=== PATIENT | male | born 1955 | race Caucasian/White ===

== ENCOUNTER 2017-04-29 09:04 | Inpatient (IN) | payer BC ==
[2017-04-29] MEDS ORDERED: ASPIRIN EC 325 MG TAB PO ONE ×2 (09:07→09:32)
[2017-04-29] MEDS ORDERED: FAMOTIDINE 20 MG TAB PO ONE (09:07)
[2017-04-29] MEDS ORDERED: DIAZEPAM 5 MG TAB PO ONE (09:07)
[2017-04-29] MEDS ORDERED: NS 1,000 ML IV ONE (09:07)
[2017-04-29] MEDS ORDERED: diphenhydrAMINE 25 MG CAP PO ONE ×2 (09:07→09:32)
--- NOTE | 2017-04-29 09:30 | CPEKG ---
Heart Rate: 67 RR Interval: 896 P-R Interval: 156 QRSD Interval: 86 QT Interval: 396 QTC Interval: 418 P Prescott: 46 QRS Prescott: 39 T Wave Prescott: 50 EKG Severity - NORMAL ECG - EKG Impression: SINUS RHYTHM Electronically Signed By: Gagan Corea 29-Apr-2017 12:42:15
[2017-04-29] MEDS ORDERED: FAMOTIDINE 20 MG TAB ONE (09:32)
[2017-04-29] MEDS ORDERED: DIAZEPAM 5 MG TAB ONE (09:32)
[2017-04-29 09:40] LABS: % IMMATURE GRANULYOCYTES 1.3 % (0.0-1.1); ABSOLUTE IMMATURE GRANULOCYTES 0.06 10^3/uL (0.00-0.10); ADD DIFF? NO; ADD MORPH? NO; ADD SCAN? NO; ATYPICAL LYMPHOCYTE FLAG 10 (0-99); FRAGMENT RBC FLAG 0 (0-99); HEMATOCRIT 41.7 % (40.0-51.0); HEMOGLOBIN 14.6 g/dL (13.7-17.5); LEFT SHIFT FLG 10 (0-99); LIPEMIA HEMOLYSIS FLAG 90 (0-99); MEAN CELL VOLUME 94.1 fL (81.5-99.8); MEAN PLATELET VOLUME 9.5 fL (8.7-11.7); PLATELET CLUMPS FLAG 0 (0-99); PLATELET COUNT 144 10^3/uL (150-400); RED BLOOD CELL COUNT 4.43 10^6/uL (4.40-6.38); RED CELL DISTRIBUTION WIDTH 13.2 % (11.5-15.2)
--- NOTE | 2017-04-29 09:53 | PDHPUP ---
History & Physical Update H&P update statement: This history and physical update is based on an assessment of the patient which was completed after admission or registration (within 24 hours), but prior to the surgery/procedure. H&P update: H&P reviewed & patient examined, no change in patient's condition since H&P completed
--- NOTE | 2017-04-29 09:54 | PDPROPOC ---
Sedation Plan of Care Sedation Plan of Care: vital signs stable, mental status noted, patient educated of risks, benefits, alternatives, patient can tolerate sedation ASA Classification: ASA 3 Planned drugs: fentanyl, midazolam Mallampati Score: Class 3 Mallampati Reference Image: Patient passed 3-3-2 rule?: Yes
[2017-04-29 09:56] LABS: ANION GAP 13 mEq/L (8-16); CALCIUM 9.5 mg/dL (8.5-10.4); CARBON DIOXIDE 27 mEq/l (22-31); CHLORIDE 102 mEq/L (97-110); CHOLESTEROL 151 mg/dL (140-220); CHOLESTEROL/HDL RATIO 2.75 RATIO (1.00-4.97); CREATININE 0.8 mg/dL (0.7-1.3); GLOMERULAR FILTRATION RATE > 60; GLUCOSE 84 mg/dL (70-100); HIGH DENSITY LIPOPROTEIN 55 mg/dL (40-65); LDL/HDL RATIO 1.45 RATIO (1.00-3.64); LOW DENSITY LIPOPROTEIN 80 mg/dL (80-100); NON-HIGH DENSITY LIPOPROTEIN 96 mg/dL (90-129); SODIUM 142 mEq/L (134-144); TRIGLYCERIDE 83 mg/dL (40-150); VERY LOW DENSITY LIPOPROTEINS 16 mg/dL (8-25)
[2017-04-29 09:57] LABS: INR 0.97 (0.83-1.16); PROTIME(PATIENT) 12.8 SEC (12.0-15.0)
[2017-04-29] MEDS ORDERED: fentaNYL 100 MCG/2 ML INJ ONE ×2 (10:50→11:20)
[2017-04-29] MEDS ORDERED: MIDAZOLAM 2 MG/2 ML VIAL ONE ×2 (10:50→11:20)
[2017-04-29] MEDS ORDERED: HEPARIN 10,000 UNIT/10 ML MDV ONE ×2 (10:50→11:59)
[2017-04-29] MEDS ORDERED: VERAPAMIL 5 MG/2 ML VIAL ONE (10:50)
[2017-04-29] MEDS ORDERED: LIDOCAINE 1% 300 MG/30 ML SDV ONE (10:50)
[2017-04-29] MEDS ORDERED: IOPAMIDOL (ISOVUE-370) 150 ML BTL IV ONE ×2 (10:51→12:08)
[2017-04-29] MEDS ORDERED: ONDANSETRON 4 MG/2 ML VIAL ONE (11:09)
--- NOTE | 2017-04-29 11:16 | PDDXCAT ---
Diagnostic Cath Note - . Date: 04/29/17 Helicopter Pilot: Ginette Indication: CCC Class III and IV angina on medical treatment - Procedure Access: left wrist Procedure: left heart catheterization - Materials Left Heart Cath size: 5F Left Heart Cath materials: standard multipack (JL4, JR4, pigtail) - Findings-Left Heart Catheterization LM: 8mm in size and bifurcates into the LAD and circumflex system. There is approx 20% ostial stenosis at the takeoff from the left coronary cusp. LAD: It is 4mm in size. There is a 60 to 65% stenosis of the ostial LAD. There is a 95% stenosis of the main LAD diagonal with AC III flow. This is in essence a bifid LAD system. The LAD proper is subtotally occluded with 99% stenosis and AC II flow. LCX: It is 4mm in size with a large obtuse marginal branch and AC III flow. A small segment of the distal circumflex reveals a 99% stenosis but feed a relatively small territory. RCA: 4mm in size with AC III flow throughout. This is a codominant system. Diffusely luminal irregularity distally, consistent with underlying scelrosis. No flow limiting obstruction is identified. EDP: 15 mmHg LVEF: Is greater that 65%. No segmental wall motion abnormalities. There is significant mitral regurgitation on pressurized injection and the left atrium appears large. Wall motion: There are no segmental wall motion abnormalities. The papillary muscles are prominent and there may be asymetric thickening of the proximal septum. Complications: NONE. Estimated blood loss: <50ml Closure method: TR Band Assessment: the patient has severe sitka vessel coronary disease with an ostial 62% stenosis of the LAD and severe and flow limiting obstruction of a bifid LAD and diagonal system, which would require complex intervention and bifucation stenting to repair. A small circumflex obstuse marginal branch also has a flow limiting obstruction but is unlikely to be a target for bypass. There is evidence of significant mitral regurgitation and possible asymetric hypertrophy of the interventricular septum as well. Plan: The patient will be taken to the [facility] where a transthoracic echocardiogram will be obtained to assess the severity of mitral regurgitation and thickness of the left ventricular septum. The patient will be offered complex intervention with bifurcation stenting vs bypass surgery vs a hybrid procedure with SORIA to the LAD diagonal with a planned percutaneous intervention of the LAD and distal circumflex. Intervention: IVUS of the proximal LAD and left main was accomplished with a 6 serbian 3.5 EBU guiding catheter and a 0.014 intuition coronary wire and a Whiphand IVUS catheter. The ostial LAD was found to have a 63% plaque area stenosis. Minimal eccentric plaque of the left main was identified.
--- NOTE | 2017-04-29 15:40 | ECHO ---
[email or web address] [address] [address] Main: [phone] Fax: Transthoracic Echocardiogram Name: BILL FARAH MR#: [id number] Study Date: 04/29/2017 Study Time: 01:12 PM Date of : 1955 Age: 61 year(s) Height: 167.6 cm (66 in.) Weight: 70.76 kg (156 lb.) BSA: 1.8 m2 Gender: Male Examination: Echo Indication: Image Quality: Adequate Contrast: Requested by: Britton Peng BP: 129 mmHg/85 mmHg Heart Rate: Rhythm: Normal sinus rhythm Indication: Procedure Staff Loader Machine: Sushila Gudino Reading Physician: Too Foley Requesting Provider: Britton Peng Conclusions: Normal size left ventricle. Borderline concentric LV hypertrophy. Normal global systolic LV function. EF is 62 %. No regional wall motion abnormality. There is mild thickening of the mitral valve leaflets. There is Mild posterior annulus calcification. Minimal aortic cusp calcification is noted. There is no aortic valve regurgitation. The tricuspid valve is normal in appearance and function. Mild tricuspid regurgitation is present. Measurements: Chambers Valvular Assessment AV/MV Valvular Assessment TV/PV Normal Normal Normal Name Value Range Name Value Range Name Value Range Ao Carmen (MM): 2.9 cm (2.2 cm-3.7 AV Vmax: 0.79 m/s (1 m/s-1.7 TR Vmax: 2.01 mm/s ( - ) cm) m/s) TR PGmax: 16 mmHg ( - ) IVSd (2D): 1.2 cm (0.6 cm-1.1 AV maxP mmHg ( - ) syst. PAP: 21 mmHg ( - ) cm) LVOT Vmax: 0.81 m/s (0.7 m/s-1.1 PV Vmax: 0.84 m/s (0.6 m/s-0.9 LVDd (2D): 3.9 cm (4.2 cm-5.9 m/s) m/s) cm) MV E Vmax: 0.66 m/s ( - ) PV PGmax: 3 mmHg ( - ) LVDs (2D): 2.7 cm (2.1 cm-4 MV A Vmax: 0.54 m/s ( - ) cm) MV E/A: 1.22 ( - ) LVPWd (2D): 0.9 cm (0.6 cm-1 cm) LVEF (BP): 62 % (>=55 %) RVDd(2D): 3.9 cm (1.9 cm-3.8 cmmm) Patient: BILL FARAH Study Date: 04/29/2017 Page 1 of 2 01:12 PM Continued Measurements: Chambers Valvular Assessment AV/MV Valvular Assessment TV/PV Name Value Name Value Name Value LADs Lon.6 cm MV DecTime: 222 m/s CVP (est.): 5 mmHg LA Area: 17.1 cm2 MV E' Septal: 0.06 m/s LA Volume: 49 ml MV E/E' Septal: 10.80 LA Volume Index: 27.2 ml/m2 MV E/E' Lateral: 9.10 TAPSE: 1.9 cm Additional Vessels Name Value Ao Ascendin.4 cm Findings: Left Ventricle: Normal size left ventricle. Borderline concentric LV hypertrophy. Mild proximal septal thickening. Normal global systolic LV function. EF is 62 %. No regional wall motion abnormality. Normal diastolic LV function. Right Ventricle: Normal size right ventricle. Left Atrium: The left atrium is normal in size. Right Atrium: The right atrium is normal in size. Mitral Valve: The mitral valve is normal in appearance and function. There is mild thickening of the mitral valve leaflets. Mild mitral valve regurgitation is present. There is Mild posterior annulus calcification. Aortic Valve: The aortic valve is normal in appearance and function. The aortic valve is tri-leaflet. Mild focal thickening on the right coronary leaflet. Minimal aortic cusp calcification is noted. There is no aortic valve regurgitation. Tricuspid Valve: The tricuspid valve is normal in appearance and function. Mild tricuspid regurgitation is present. The pulmonary artery pressure is normal. Pulmonic Valve: The pulmonic valve is normal in appearance and function. Mild pulmonic valve regurgitation is noted. Aorta: The aorta is normal. Pericardium: No pericardial effusion. (No Signature Object) Patient: BILL FARAH Study Date: 04/29/2017 Page 2 of 2 01:12 PM [id number]
[2017-04-29] MEDS ORDERED: NITROGLYCERIN 0.4 MG BTL SL PRN (16:52)
[2017-04-29] MEDS ORDERED: ATROPINE SULFATE 1 MG/10 ML SYR IVP PRN (16:52)
[2017-04-29] MEDS ORDERED: ONDANSETRON DISINTEGRATING 4 MG TAB PO PRN (16:52)
[2017-04-29] MEDS ORDERED: ACETAMINOPHEN 325 MG TAB PO PRN (16:52)
[2017-04-29] MEDS ORDERED: METHOTREXATE 2.5 MG TAB PO SCH (17:15)
[2017-04-29] MEDS: ASPIRIN 81 MG CHEWABLE TAB PO SCH (23:10)
[2017-04-30] MEDS: ZOLPIDEM TARTRATE 5 MG TAB PO PRN (01:02)
[2017-04-30 05:49] LABS: TROPONIN I 0.025 ng/mL (0.000-0.034)
[2017-04-30] MEDS: predniSONE 5 MG TAB PO SCH (09:32)
[2017-04-30] MEDS: ROSUVASTATIN CALCIUM 10 MG TAB PO SCH (09:33)
[2017-04-30] MEDS ORDERED: LISINOPRIL/HCTZ 10/12.5 MG 1 EA TAB PO SCH (14:00)
--- NOTE | 2017-04-30 15:48 | ASMTCASEMG ---
Living Arrangements What is your living Answers: With Spouse arrangement? Who do you live with? Type Of Residence What kind of residence do Answers: House you live in? Discharge Plan Comments Coordination Status Comments Notes: Chart reviewed, pt is a 61 y/o man admitted for post cath and pre open heart. Pt is scheduled to have surgical intervention tomorrow. Needs are TBD at this time. No therapies ordered at this time. However, anticipates that pt will d/c independent when medically stable w/ supportive . CM available for changes. Date Signed: 04/30/2017 03:47 PM Electronically Signed By:DANILO Jaimes
--- NOTE | 2017-04-30 16:46 | GCON ---
[f rep st] CONSULTATION DATE OF CONSULTATION: 04/29/2017 IMPRESSION: Unstable angina pectoris with 2-vessel disease, and normal left ventricular function. RECOMMENDATIONS: This patient should stay in house and undergo coronary bypass grafting on an urgent basis, given his unstable symptomatology pre-catheterization. The risks and complications were revie wed at length including mortality/ of 1%, bleeding of 1%, infection of 1%, and stroke of 1%. Alt ernatives including complex stenting in a young man were reviewed and offered but felt to be a substa ndard alternative. The patient preferred to proceed with surgical intervention, understood and accept ed those risks. His was present during discussion as was Dr. Peng. CHIEF COMPLAINT: Chest pain. HISTORY OF CHIEF COMPLAINT: This patient developed severe substernal chest pain while cutting the gr ass, which took some time to resolve. Upon further questioning, he had spent most of the night with o ngoing chest pain in bed, thinking it was heartburn. He was seen and referred to Dr. Peng, who took him directly to the union laborer and he was found to have high-grade LAD, diagonal bifurcation disease w ith diffuse disease in the distal vessels. He had some posterior lateral circumflex disease as well. MEDICAL HISTORY: As stated. Surgeries include appendectomy, back surgery, and lymph node excision. S jogren syndrome. MEDICATIONS: On admission were lisinopril, Crestor, methotrexate, and prednisone for Sjogren syndrom e. ALLERGIES: Denied. SOCIAL HISTORY: He drinks coffee. He does not smoke, and he does not drink in excess. FAMILY HISTORY: Positive for coronary artery disease with multiple prior interventions on family mem bers. REVIEW OF SYSTEMS: At the present time, he is asymptomatic without chest pain. All 10 systems were i nterrogated and were unremarkable except for chief complaint. PHYSICAL EXAMINATION: VITAL SIGNS: Blood pressure 120/80, pulse 76, respirations 14, O2 saturation w as 93% on room air. HEENT: Normocephalic, PERRLA, EOMI. NECK: Without bruit, adenopathy or thyromegal y. HEART: Rate is regular without murmur, S3 or S4. LUNGS: Clear. ABDOMEN: Soft, nontender. Bowel sandra nds are active. RECTAL, GENITALIA: Exam deferred. NEUROLOGIC: Grossly intact. Moves all extremities t o command. EXTREMITIES: Pedal pulses are 2+ and symmetric. There is no edema. No varicosities. Please see cath report for details. Troponin was negative. BNP was 42. /[id number]/MODL
[2017-04-30 17:56] LABS: HEMOGLOBIN A1C 4.8 % (4.0-6.0)
[2017-04-30] MEDS: ASPIRIN 81 MG CHEWABLE TAB PO SCH (20:58)
[2017-04-30] MEDS: SENNOSIDES/DOCUSATE SODIUM TAB PO SCH (20:58)
[2017-04-30] MEDS ORDERED: CHLORHEXIDINE GLUC HIBICLENS 118 ML BTL TP SCH (21:00)
[2017-05-01 05:29] LABS: ANION GAP 12 mEq/L (8-16); CALCIUM 10.2 mg/dL (8.5-10.4); CARBON DIOXIDE 26 mEq/l (22-31); CHLORIDE 99 mEq/L (97-110); CREATININE 0.8 mg/dL (0.7-1.3); GLOMERULAR FILTRATION RATE > 60; GLUCOSE 82 mg/dL (70-100); POTASSIUM 3.7 mEq/L (3.5-5.2); SODIUM 137 mEq/L (134-144)
[2017-05-01] MEDS ORDERED: MANNITOL 20% 50 GM/250 ML BAG IV ONE (06:00)
[2017-05-01] MEDS ORDERED: niCARdipine/NACL 200 ML IV ONE (06:00)
[2017-05-01] MEDS ORDERED: NOREPINEPHRINE BITARTRATE 16 MG in NS 250 ML IV ONE (06:00)
[2017-05-01] MEDS ORDERED: VERAPAMIL 5 MG, NITROGLYCERIN 2.5 MG, HEPARIN 500 UNIT, SODIUM BICARBONATE 0.2 MEQ in L... MISC ONE (06:00)
[2017-05-01] MEDS ORDERED: AMINOCAPROIC ACID 5 GM/20 ML VIAL IV ONE (06:00)
[2017-05-01] MEDS ORDERED: PHENYLEPHRINE HCL 50 MG in NS 250 ML IV ONE (06:00)
[2017-05-01] MEDS ORDERED: SODIUM BICARBONATE 20 MEQ, LIDOCAINE 1% 10 ML in NORMOSOL-R 1,000 ML MISC ONE (06:00)
[2017-05-01] MEDS ORDERED: CITRATE DEXTROSE SOLN 500 ML BAG MISC ONE (06:00)
[2017-05-01] MEDS ORDERED: NS 1,000 ML IV ONE (06:00)
[2017-05-01] MEDS ORDERED: ceFAZolin 2 GM/DEXTROSE 100 ML IV ONE (06:00)
[2017-05-01] MEDS ORDERED: INSULIN REGULAR HUMAN 100 UNIT in NS 100 ML IV ONE (06:00)
[2017-05-01] MEDS: MUPIROCIN 2% 22 GM OINT NS SCH ×3 (06:22→22:09)
[2017-05-01] MEDS ORDERED: POTASSIUM Cl (KCl) 20 MEQ/50 ML BAG IV ONE (07:12)
[2017-05-01] MEDS ORDERED: PROTAMINE SULFATE 50 MG/5 ML VIAL IVP ONE (07:12)
[2017-05-01] MEDS ORDERED: CALCIUM CHLORIDE 1 GM/10 ML INJ ONE ×2 (07:12→07:20)
[2017-05-01] MEDS ORDERED: MILRINONE/DEXTROSE/100 ML BAG IV ONE (07:12)
[2017-05-01] MEDS ORDERED: DOPamine/DEXTROSE/250 ML BAG IV ONE (07:13)
[2017-05-01] MEDS ORDERED: AMINOCAPROIC ACID 5 GM/20 ML VIAL ONE ×2 (07:13→07:20)
[2017-05-01] MEDS ORDERED: NA BICARBONATE 50 MEQ/50 ML VIAL ONE (07:13)
[2017-05-01] MEDS ORDERED: ADENOSINE 6 MG/2 ML VIAL ONE (07:14)
[2017-05-01] MEDS ORDERED: AMIODARONE HCL 150 MG/3 ML VIAL ONE ×2 (07:14→07:21)
[2017-05-01] MEDS ORDERED: niCARdipine/NACL/200 ML BAG IV ONE (07:14)
[2017-05-01] MEDS ORDERED: HEPARIN 10,000 UNIT/10 ML MDV ONE ×2 (07:16→07:22)
[2017-05-01] MEDS ORDERED: PAPAVERINE HCL 60 MG/2 ML SDV ONE ×2 (07:19→08:05)
[2017-05-01] MEDS ORDERED: VERAPAMIL 5 MG/2 ML VIAL ONE ×2 (07:19→08:05)
[2017-05-01] MEDS ORDERED: ceFAZolin 1 GM VIAL ONE (07:19)
[2017-05-01] MEDS ORDERED: ALBUMIN 5% 250 ML BOTTLE IV ONE ×2 (07:20→11:04)
[2017-05-01] MEDS ORDERED: LIDOCAINE 2% 100 MG/5 ML SYR ONE (07:21)
[2017-05-01] MEDS ORDERED: CITRATE DEXTROSE SOLN 500 ML BAG ONE (07:21)
[2017-05-01] MEDS ORDERED: methylPREDNISolone SOD SUCC 1 GM/8 ML VIAL ONE (07:22)
[2017-05-01] MEDS ORDERED: MAGNESIUM SULFATE 1 GM/2 ML VIAL ONE (07:22)
--- NOTE | 2017-05-01 07:41 | PDANEPAE ---
ANE History of Present Illness here for cabg, has unstable angina ANE Past Medical History - Cardiovascular History Hx Hypertension: No Hx Chest Pain: Yes Hx Coronary Artery / Peripheral Vascular Disease: Yes Hx CHF / Valvular Disease: No Hx Palpitations: No Cardiovascular History Comment: 2 v disease unstable angina - Pulmonary History Hx COPD: No Hx Asthma/Reactive Airway Disease: No Hx Recent Upper Respiratory Infection: No Hx Oxygen in Use at Home: No Hx Sleep Apnea: No Sleep Apnea Screening Result - Last Documented: Positive - Endocrine History Hx Diabetes: No Hypothyroid: No Hyperthyroid: No Obesity: no - Renal History Hx Renal Disorders: No - Liver History Hx Hepatic Disorders: No - Other Health History Other Health History: srojens - Chronic Pain History Chronic Pain: No (if keeps up with methotrexate) ANE Review of Systems Review of systems is: negative Review of Systems: - Exercise capacity Exercise capacity: <4 METS ANE Patient History - Allergies Allergies/Adverse Reactions: No Allergies [NKDA] Allergy (Verified 04/28/17 13:53) - Home Medications Home medications: home medication list seen and reviewed Home Medications: Aspirin [Aspirin 81mg (*)] 81 mg PO HS 04/29/17 [Last Taken 04/28/17 162mg] Cholecalciferol Vit D3 [Vitamin D3 2000 units tab (OTC)] 2,000 units PO DAILY [Last Taken 04/29/17] Folic Acid [Folic Acid 1 MG (*)] 1 mg PO DAILY 04/29/17 [Last Taken 04/29/17] Herbals/Supplements -Info Only 1 ea PO DAILY 04/29/17 [Last Taken Unknown] Lisinopril/Hctz 10/12.5 mg [Zestoretic/Prinzide 10/12.5MG (*)] 1 ea PO DAILY@14 04/29/17 [Last Taken 04/28/17] Methotrexate Sodium [Rheumatrex 2.5 mg (RX)] 10 mg PO TH 04/29/17 [Last Taken ] Rosuvastatin Calcium [Crestor 5mg] 2.5 mg PO Q2D 04/29/17 [Last Taken 04/28/17] predniSONE 2.5 mg PO DAILY 04/29/17 [Last Taken 04/29/17] - NPO status NPO Status: no food or drink >8 hours NPO Since - Liquids (Date): 05/01/17 NPO Since - Liquids (Time): 00:01 NPO Since - Solids (Date): 04/30/17 NPO Since - Solids (Time): 18:00 - Anes Hx Anes Hx: no prior problems - Smoking Hx Smoking Status: Former smoker ANE Labs/Vital Signs - Labs Result Diagrams: 04/29/17 09:30 05/01/17 04:05 - Vital Signs Blood Pressure: 139/87 Heart Rate: 83 Respiratory Rate: 14 O2 Sat (%): 92 Height: 167.64 cm Weight: 69.7 kg ANE Physical Exam - Airway Neck exam: FROM Mallampati Score: Class 1 Mouth exam: normal dental/mouth exam - Pulmonary Pulmonary: no respiratory distress - Cardiovascular Cardiovascular: regular rate and rhythym - ASA Status ASA Status: IV ANE Anesthesia Plan Anesthesia Plan: general endotracheal anesthesia Lines/Monitors: arterial line, central line
[2017-05-01] MEDS ORDERED: HYDROmorphONE/DILAUDID 2 MG/ML INJ ONE ×3 (07:52→10:17)
[2017-05-01] MEDS ORDERED: PROPOFOL/EMULSION 500 MG/50 ML BOTTLE IV ONE (07:54)
[2017-05-01] MEDS ORDERED: PHENYLEPHRINE HCL 100 MCG/ML SYR ONE (07:54)
[2017-05-01] MEDS ORDERED: LIDOCAINE 2% 5 ML SDV ONE (07:54)
[2017-05-01] MEDS ORDERED: DEXAMETHASONE 4 MG/ML VIAL ONE ×2 (07:57)
[2017-05-01] MEDS ORDERED: HYDROCORTISONE 100 MG/2 ML VIAL IVP SCH (08:00)
[2017-05-01] MEDS ORDERED: NITROGLYCERIN 50 MG/10 ML SDV IV ONE (08:00)
[2017-05-01] MEDS ORDERED: KETAMINE 100 MG/10 ML SYR ONE (08:02)
[2017-05-01] MEDS ORDERED: MIDAZOLAM 2 MG/2 ML VIAL ONE (08:07)
[2017-05-01] MEDS ORDERED: MINERAL OIL 10 ML VIAL ONE (10:24)
[2017-05-01] MEDS ORDERED: SUGAMMADEX SODIUM 200 MG/2 ML VIAL IVP ONE (10:47)
--- NOTE | 2017-05-01 11:00 | POSTOPPROG ---
Post Op Note Date of Operation: 05/01/17 Surgeon: Emile Rachel Director Of Gift Planning: Pradeep Anesthesiologist: Rahul Anesthesia: GET(General Endotracheal) Pre-op Diagnosis: ASHD, [place] Procedure: CAB 2 Jon-Lad, SVG-Dg, Atriclip Inf/Abcess present in the surg proc area at time of surgery?: No EBL: Minimal
[2017-05-01] MEDS ORDERED: METOCLOPRAMIDE 10 MG/2 ML VIAL IVP PRN (11:04)
[2017-05-01] MEDS ORDERED: CEPACOL LOZENGE PO PRN (11:04)
[2017-05-01] MEDS ORDERED: LACTULOSE 20 GM/30 ML UDCUP PO PRN (11:04)
[2017-05-01] MEDS ORDERED: BISACODYL 10 MG SUPP PR PRN (11:04)
[2017-05-01] MEDS ORDERED: MEPERIDINE 25 MG/ML SYR IVP PRN (11:04)
[2017-05-01] MEDS ORDERED: MAGNESIUM SULF 2 GM/WATER 50 ML BAG IV ONE (11:04)
[2017-05-01] MEDS ORDERED: POTASSIUM Cl (KCl) 50 ML IV PRN (11:04)
[2017-05-01] MEDS ORDERED: PANTOPRAZOLE SODIUM 40 MG in NS 100 ML IV ONE (11:04)
[2017-05-01] MEDS ORDERED: SODIUM CL NASAL 45 ML BTL EACHNARE PRN (11:04)
[2017-05-01] MEDS ORDERED: ACETAMINOPHEN 325 MG TAB PO PRN (11:04)
[2017-05-01] MEDS ORDERED: MAGNESIUM SULF 2 GM/WATER 50 ML IV ONE (11:04)
[2017-05-01] MEDS ORDERED: D50W 25 GM/50 ML SYR IVP PRN (11:04)
[2017-05-01] MEDS ORDERED: NS 1,000 ML IV SCH (11:15)
[2017-05-01] MEDS ORDERED: KETOROLAC 15 MG/1 ML SDV ONE (11:24)
--- NOTE | 2017-05-01 11:25 | CPEKG ---
Heart Rate: 101 RR Interval: 594 P-R Interval: 136 QRSD Interval: 88 QT Interval: 364 QTC Interval: 472 P Leo: 73 QRS Leo: 67 T Wave Leo: 57 EKG Severity - OTHERWISE NORMAL ECG - EKG Impression: SINUS TACHYCARDIA Electronically Signed By: Gagan Corea 01-May-2017 12:20:18
[2017-05-01] MEDS ORDERED: INSULIN REGULAR HUMAN 100 UNIT in NS 100 ML IV SCH (11:30)
--- NOTE | 2017-05-01 11:31 | POSTANESTH ---
Post Anesthetic Evaluation Cardiovascular Status: Normal, Stable Respiratory Status: Normal, Stable Level of Consciousness/Mental Status: Can Participate in Eval, Mildly Sleepy, Arousable Pain Control: Adequate, Prn Tx Ordered Nausea/Vomiting Control: Adequate, Prn Tx Ordered Complications Possibly Related to Anesthesia: None Noted
[2017-05-01 11:38] LABS: CALCULATED OXYGEN SATURATION 95 % (92-95); O2 CONCENTRATIION 100 % (0-100)
--- NOTE | 2017-05-01 11:39 | GOP ---
[f rep st] OPERATIVE REPORT DATE OF OPERATION: 05/01/2017 SURGEON: Emile Rachel DO HUMAN RELATIONS TEACHER: Aranza Fernández, ALBINO ANESTHESIOLOGIST: Jd Kay MD. PREOPERATIVE DIAGNOSIS: Unstable angina pectoris with 2-vessel coronary artery disease. POSTOPERATIVE DIAGNOSIS: Unstable angina pectoris with 2-vessel coronary artery disease. PROCEDURE PERFORMED: 1. Coronary bypass grafting x2 with left internal mammary artery to the LAD and saphenous vein graft to the diagonal. 2. AtriClip ligation of left atrial appendage. FINDINGS: Patient presented with crescendo/unstable angina pectoris, underwent diagnostic left heart catheterization, and was referred for surgical intervention. Consent was obtained. DESCRIPTION OF PROCEDURE: He was brought to the operating room intubated. Monitoring lines were [place] swetha. He was prepped and draped in sterile classical manner. Timeout was confirmed. A sternotomy wa s performed. The mammary was harvested. It was a 2.2 to 2.4 mm vessel with good brisk flow. He was heparinized abdomen cannulated in standard fashion. Bypass was begun, and cardioplegic arrest was o btained with antegrade cardioplegia, topical hypothermia, and systemic cooling. Initially, a diffuse ly diseased diagonal vessel measuring 1.8 mm was grafted in the mid segment where the only soft anter ior surface was identified, with vein end-to-side, which was harvested from the left ankle. Proximal anastomosis was completed with a cross-clamp on. Rewarming was begun while the mammary was grafted to the mid LAD in the area plaque-free area. It was a 2.2 to 2.4 mm vessel, actually larger than the diagonal which appeared larger on cath. It was tacked to the epicardium. The cross-clamp was remov ed with suction on the ascending aortic vent. A 35 mm AtriClip was placed at the base of the left at rial appendage without difficulty. The patient was weaned from bypass. The heparin was reversed wit h protamine. The cannula was removed and oversewn. Two ventricular pacing wires with 1 left pleural 1 mediastinal drain were placed at thymic fat. pericardium was closed. Chest was closed in standar d fashion. Patient was returned to ICU in stable condition. /[id number]/MODL
[2017-05-01] MEDS ORDERED: KETOROLAC 15 MG/1 ML SDV IVP ONE (11:45)
[2017-05-01] MEDS: ALBUMIN 5% 250 ML IV PRN ×5 (12:04→19:29)
--- NOTE | 2017-05-01 12:55 | GCON ---
[f rep st] CONSULTATION [employer] TUNING ENGINEER CONSULTATION. REASON FOR ADMISSION: Postop coronary bypass graft. HISTORY OF PRESENT ILLNESS: The patient is a 61-year-old white male with a past medical history of b ack pain with back surgeries and Sjogren syndrome. He is examined postoperatively after receiving an urgent 2-vessel coronary bypass graft for unstable symptomatology. Again, he was given a 2-vessel c oronary bypass graft. He is currently extubated in the intensive care unit, but he is somewhat sedat ed. All history is gleaned from the medical record. PAST MEDICAL HISTORY: Again, significant for coronary artery disease and Sjogren syndrome. PAST SURGICAL HISTORY: He has had an appendectomy, back surgery, and a lymph node excision. ALLERGIES: None to medications. SOCIAL HISTORY: No history of tobacco use. Infrequent alcohol use. MEDICATIONS: At home include lisinopril, Crestor, methotrexate, and prednisone. PHYSICAL EXAMINATION: VITAL SIGNS: Blood pressure 139/87, pulse 83, respirations 14, temperature 37 .1, oxygen saturation 92% on supplemental oxygen. GENERAL: He is a well-developed, well-nourished [age]-year-old white male, who is resting comfortably and in no acute distress. HEENT: Eyes are PERRLA. EOMI. Throat exam is deferred secondary to supplemental oxygen. NECK: Supple. No cervical adeno gregg. HEART: Regular rate and rhythm, without murmurs, rubs, or gallops. LUNGS: Clear to auscult ation. No wheeze or rhonchi. CHEST: The sternal wound is clean. ABDOMEN: Soft, nontender. Bowel sounds are present in all 4 quadrants. EXTREMITIES: No clubbing, cyanosis, or edema. LABORATORIES: White count 4.8, hemoglobin 14, hematocrit 41, platelet count 144. Sodium 137, potass ium 4.4, chloride 102, CO2 26, BUN 15, creatinine 0.8, glucose 169. Arterial blood gas: pH 7.28, pC O2 49, pO2 78, bicarb 23, oxygen saturation 95%. IMPRESSION: 1. Status post 2-vessel coronary artery bypass graft. 2. Coronary artery disease. 3. Sjogren syndrome. 4. Hypertension. 5. Hypercholesterolemia. RECOMMENDATIONS: 1. Adequate pain control. 2. DVT and PE prophylaxis, holding anticoagulation for now. 3. Aggressive blood sugar control. 4. Stress ulcer prophylaxis. 5. Early ambulation. 6. PT and OT. /[id number]/MODL
[2017-05-01] MEDS: ceFAZolin 2 GM/DEXTROSE 100 ML IV SCH ×2 (13:55→21:58)
[2017-05-01] MEDS: POTASSIUM Cl (KCl) 20 MEQ in NS 50 ML IV PRN (13:56)
[2017-05-01 16:13] LABS: CALCULATED OXYGEN SATURATION 97 % (92-95)
[2017-05-01] MEDS: ONDANSETRON 4 MG/2 ML VIAL IVP PRN ×2 (16:15→19:29)
[2017-05-01] MEDS: predniSONE 5 MG TAB PO SCH (17:34)
[2017-05-01] MEDS: SENNOSIDES/DOCUSATE SODIUM TAB PO SCH (17:36)
[2017-05-01] MEDS: fentaNYL 100 MCG/2 ML INJ IVP PRN ×2 (20:05→21:58)
[2017-05-01] MEDS ORDERED: HEPARIN 5,000 UNIT/0.5 ML SYR SC SCH (21:00)
[2017-05-01] MEDS: ASPIRIN 81 MG CHEWABLE TAB PO SCH (22:11)
[2017-05-01] MEDS: HYDROCODONE/APAP 5/325 TAB PO PRN (22:59)
[2017-05-01] MEDS: ZOLPIDEM TARTRATE 5 MG TAB PO PRN (22:59)
[2017-05-01 23:08] LABS: HEMATOCRIT 29.3 % (40.0-51.0); HEMOGLOBIN 10.5 g/dL (13.7-17.5); MEAN CELL HEMOGLOBIN 32.9 pg (27.9-34.1); MEAN CELL HEMOGLOBIN CONCENTR. 35.8 g/dL (32.4-36.7); MEAN CELL VOLUME 91.8 fL (81.5-99.8); RED BLOOD CELL COUNT 3.19 10^6/uL (4.40-6.38); RED CELL DISTRIBUTION WIDTH 13.1 % (11.5-15.2)
[2017-05-01] MEDS: HEPARIN 5,000 UNIT/0.5 ML SYR SC SCH (23:23)
[2017-05-02] MEDS: fentaNYL 100 MCG/2 ML INJ IVP PRN ×3 (01:49→08:22)
[2017-05-02] MEDS: OXYCODONE/APAP 5/325 TAB PO PRN ×2 (01:49→21:27)
[2017-05-02] MEDS ORDERED: niCARdipine/NACL 200 ML IV SCH (02:30)
[2017-05-02] MEDS: ceFAZolin 2 GM/DEXTROSE 100 ML IV SCH ×3 (05:04→21:28)
[2017-05-02 05:15] LABS: % IMMATURE GRANULYOCYTES 0.5 % (0.0-1.1); ABSOLUTE IMMATURE GRANULOCYTES 0.05 10^3/uL (0.00-0.10); ADD DIFF? NO; ADD MORPH? NO; ADD SCAN? NO; ATYPICAL LYMPHOCYTE FLAG 0 (0-99); FRAGMENT RBC FLAG 0 (0-99); HEMATOCRIT 29.9 % (40.0-51.0); HEMOGLOBIN 10.5 g/dL (13.7-17.5); LEFT SHIFT FLG 10 (0-99); LIPEMIA HEMOLYSIS FLAG 90 (0-99); MEAN CELL HEMOGLOBIN 32.9 pg (27.9-34.1); MEAN CELL HEMOGLOBIN CONCENTR. 35.1 g/dL (32.4-36.7); MEAN CELL VOLUME 93.7 fL (81.5-99.8); MEAN PLATELET VOLUME 9.2 fL (8.7-11.7); PLATELET CLUMPS FLAG 0 (0-99); PLATELET COUNT 77 10^3/uL (150-400); RED BLOOD CELL COUNT 3.19 10^6/uL (4.40-6.38); RED CELL DISTRIBUTION WIDTH 13.3 % (11.5-15.2)
[2017-05-02] MEDS: HEPARIN 5,000 UNIT/0.5 ML SYR SC SCH (05:18)
[2017-05-02 05:47] LABS: ANION GAP 10 mEq/L (8-16); CALCIUM 8.5 mg/dL (8.5-10.4); CARBON DIOXIDE 23 mEq/l (22-31); CHLORIDE 107 mEq/L (97-110); CREATININE 0.6 mg/dL (0.7-1.3); GLOMERULAR FILTRATION RATE > 60; GLUCOSE 106 mg/dL (70-100); POTASSIUM 3.9 mEq/L (3.5-5.2); SODIUM 140 mEq/L (134-144)
[2017-05-02] MEDS: HYDROCODONE/APAP 5/325 TAB PO PRN (07:49)
[2017-05-02] MEDS ORDERED: PROTOCOL POTASSIUM 1 DOSE MISC PRN (08:05)
[2017-05-02] MEDS ORDERED: POTASSIUM Cl (KCl) 50 ML IV ONE (08:09)
[2017-05-02] MEDS: ONDANSETRON 4 MG/2 ML VIAL IVP PRN ×2 (08:25→18:08)
--- NOTE | 2017-05-02 08:29 | SOAPPROG ---
SOAP Progress Note Assessment/Plan: Assessment: POD#1 Urgent CABG x 2 (SORIA-LAD, SV-D1), open harvest GSV left low leg, prophylactic AtriClip ligation left atrial appendage Sx severe CAD with preserved LV systolic fx - s/p CABG2. Extubated in the OR. No pressor support, jamilah/tachydysrhythmias, backup pacing, or significant volume overload. Secondary prevention with ASA, BB as tolerated, and statin when eating well. Adjunctive Plavix x 1 mo for friable vessels. HTN - Home control with ACEI/HCTZ. Postop management with low dose nicardipine. Transition to metoprolol in progress. Postoperative pain and nausea - Expected given hx low pain threshold and profound nausea to narcs. Postop management with multimodal analgesia and anti- emetics. Chest tube removal as soon as feasible. Acute expected blood loss anemia with thrombocytopenia - Stable. No blood products transfused. Care with VTE prophylaxis while platelets depressed. Sjogren syndrome - IV steroids intraop transitioned back to maintenance prednisone dose. Plan: Routine POD#1 orders re lines, drains, orals and mobility. Start Plavix 75 mg daily x 1 month. Stop nicardipine. Start metoprolol tartrate 12.5 mg BID w conservative hold parameters. Toradol 30mg IV prn breakthrough pain. Trial phenergan. Scopolamine patch if ineffective. Tx to PCU. 05/02/17 08:22 Subjective: Hanging in there. Low grade pain/nausea not limiting sleep, IS or mobility. Sipping water. No appetite. Objective: Vital Signs Temp Pulse Resp BP Pulse Ox 37.9 C 107 H 19 124/65 H 93 05/02/17 04:00 05/02/17 07:00 05/02/17 07:00 05/02/17 07:46 05/02/17 07:00 Laboratory Results 05/02/17 05:05 05/02/17 05:05 05/01/17 05/02/17 05/03/17 05:59 05:59 05:59 Intake Total 300 3439.7 Output Total 2275 Balance 300 1164.7 PT 12.8 SEC (12.0-15.0) 04/29/17 09:30 INR 0.97 (0.83-1.16) 04/29/17 09:30 Nicardipine @ 2 mg for MAP > 80. Persistent tachycardia, likely reactive to pain. Min suppl O2 req. CXR -> no PTX, no pulm vasc congestion, small left pl effusion with compressive atelectasis. Pl tube appears in good position. No sig CTOP. Positive fluid balance without depressed UOP. Labs as expected. Physical Exam - Physical Exam General Appearance: alert, no apparent distress Respiratory: lungs clear (excellent insp effort), other (blakes x 2 y-d to pleurovac, serosang drainage, +tidal, no air leak; left pleural tube stripped of fibrinous stranding/clot) Cardiac/Chest: regular rate, rhythm, tachycardia, other (Sternotomy and LLE venotomy CDI. Vwires intact.) Abdomen: non-tender, soft Skin: warm/dry Extremities: swelling (trace) ICD10 Worksheet Patient Problems: Problems Problem Status Onset Acute blood loss anemia Acute CAD in [place] artery Acute S/P CABG x 2 Acute ~05/01/17 Unstable angina Acute
[2017-05-02] MEDS: POTASSIUM Cl (KCl) 20 MEQ in NS 50 ML IV PRN (08:40)
--- NOTE | 2017-05-02 09:18 | PDINTPN ---
Ux Design Lead Progress Note Assessment/Plan: Assessment/plan: * Status post 2 vessel coronary bypass graft * Coronary disease * Sjogren syndrome * Pain-tolerable * Probable obstructive sleep apnea -will need outpatient sleep study upon discharge * PT/OT * Begin ambulation Subjective: Sitting up in chair. Pain is tolerable. Breathing easily. Objective: Vital Signs Temp Pulse Resp BP Pulse Ox 37.9 C 99 20 133/65 H 95 05/02/17 04:00 05/02/17 09:00 05/02/17 09:00 05/02/17 09:00 05/02/17 09:00 Laboratory Results 05/02/17 05:05 05/02/17 05:05 05/01/17 05/02/17 05/03/17 05:59 05:59 05:59 Intake Total 300 3439.7 Output Total 2275 150 Balance 300 1164.7 -150 PT 12.8 SEC (12.0-15.0) 04/29/17 09:30 INR 0.97 (0.83-1.16) 04/29/17 09:30 Chest [id number]-[id number]-[id number] by myself. Central line in good position. There is mild cardiomegaly. And mild fluid overload Physical Exam - Physical Exam General Appearance: WD/WN, alert, no apparent distress EENT: PERRL/EOMI, normal ENT inspection, pharynx normal, TMs normal Neck: non-tender, full range of motion, supple, normal inspection Respiratory: crackles (Few basilar), No respiratory distress, No wheezing Cardiac/Chest: normal peripheral pulses, regular rate, rhythm, systolic murmur Peripheral Pulses: 2+: carotid (R), carotid (L), femoral (R), femoral (L), dorsalis-pedis (R), dorsalis-pedis (L) Abdomen: normal bowel sounds, non-tender, soft Male Genitalia: deferred Rectal: deferred Skin: normal color, warm/dry Extremities: normal range of motion, non-tender, normal inspection, normal capillary refill Neuro/Psych: no motor/sensory deficits, alert, normal mood/affect, oriented x 3 ICD10 Worksheet Patient Problems: Problems Problem Status Onset Acute blood loss anemia Acute CAD in [place] artery Acute S/P CABG x 2 Acute ~05/01/17 Unstable angina Acute
[2017-05-02] MEDS ORDERED: PROMETHAZINE HCL 25 MG/ML INJ IVP ONE (09:46)
[2017-05-02] MEDS ORDERED: KETOROLAC 30 MG/1 ML SDV IVP ONE (09:50)
[2017-05-02] MEDS: ROSUVASTATIN CALCIUM 10 MG TAB PO SCH (10:11)
[2017-05-02] MEDS: predniSONE 5 MG TAB PO SCH (10:13)
[2017-05-02] MEDS: PANTOPRAZOLE SODIUM 40 MG TAB PO SCH (10:13)
[2017-05-02] MEDS: MUPIROCIN 2% 22 GM OINT NS SCH (10:22)
[2017-05-02] MEDS ORDERED: SCOPOLAMINE HYDROBROMIDE 1 MG/3 DAYS PATCH TD PRN (11:00)
[2017-05-02] MEDS: POLYETHYLENE GLYCOL 3350 17 GM PKT PO SCH (13:38)
[2017-05-02] MEDS: CLOPIDOGREL BISULFATE 75 MG TAB PO SCH (13:47)
[2017-05-02] MEDS ORDERED: PROMETHAZINE HCL 25 MG/ML INJ IVP PRN (16:00)
[2017-05-02] MEDS: traMADol 50 MG TAB PO PRN (18:07)
[2017-05-02] MEDS: ASPIRIN 81 MG CHEWABLE TAB PO SCH (21:24)
[2017-05-02] MEDS: SENNOSIDES/DOCUSATE SODIUM TAB PO SCH (21:25)
[2017-05-02] MEDS: METOPROLOL TARTRATE 25 MG TAB PO SCH (21:27)
[2017-05-03] MEDS: MUPIROCIN 2% 22 GM OINT NS SCH ×2 (00:12→10:30)
[2017-05-03] MEDS: traMADol 50 MG TAB PO PRN ×3 (00:12→23:17)
[2017-05-03] MEDS: HYDROCODONE/APAP 5/325 TAB PO PRN ×2 (00:13→04:57)
[2017-05-03] MEDS: OXYCODONE/APAP 5/325 TAB PO PRN (02:47)
[2017-05-03 05:17] LABS: % IMMATURE GRANULYOCYTES 0.7 % (0.0-1.1); ABSOLUTE IMMATURE GRANULOCYTES 0.07 10^3/uL (0.00-0.10); ADD DIFF? NO; ADD MORPH? NO; ADD SCAN? NO; ATYPICAL LYMPHOCYTE FLAG 0 (0-99); FRAGMENT RBC FLAG 0 (0-99); HEMATOCRIT 27.9 % (40.0-51.0); HEMOGLOBIN 9.7 g/dL (13.7-17.5); LEFT SHIFT FLG 0 (0-99); LIPEMIA HEMOLYSIS FLAG 90 (0-99); MEAN CELL HEMOGLOBIN CONCENTR. 34.8 g/dL (32.4-36.7); MEAN CELL VOLUME 94.9 fL (81.5-99.8); MEAN PLATELET VOLUME 10.2 fL (8.7-11.7); PLATELET CLUMPS FLAG 0 (0-99); PLATELET COUNT 80 10^3/uL (150-400); RED BLOOD CELL COUNT 2.94 10^6/uL (4.40-6.38); RED CELL DISTRIBUTION WIDTH 13.4 % (11.5-15.2)
[2017-05-03 06:01] LABS: ANION GAP 6 mEq/L (8-16); CALCIUM 8.7 mg/dL (8.5-10.4); CARBON DIOXIDE 27 mEq/l (22-31); CHLORIDE 100 mEq/L (97-110); CREATININE 0.7 mg/dL (0.7-1.3); GLOMERULAR FILTRATION RATE > 60; GLUCOSE 124 mg/dL (70-100); SODIUM 133 mEq/L (134-144)
--- NOTE | 2017-05-03 06:02 | SOAPPROG ---
SOAP Progress Note Assessment/Plan: POD#2 Urgent CABG x 2 (SORIA-LAD, SV-D1), open harvest GSV left low leg, prophylactic AtriClip ligation left atrial appendage Sx severe CAD with preserved LV systolic fx - s/p CABG2. Extubated in the OR. No pressor support, jamilah/tachydysrhythmias, backup pacing, or significant volume overload. Secondary prevention with ASA, BB as tolerated, and statin when eating well. Adjunctive Plavix x 1 mo for friable vessels. All tubes and wires out. HTN - Home control with ACEI/HCTZ. Postop management with low dose nicardipine. Transition to metoprolol in progress. Postoperative pain and nausea - Expected given hx low pain threshold and profound nausea to narcs. Postop management with multimodal analgesia and anti- emetics. Acute expected blood loss anemia with thrombocytopenia - Stable. No blood products transfused. Care with VTE prophylaxis while platelets depressed. Sjogren syndrome - IV steroids intraop transitioned back to maintenance prednisone dose. Subjective: Pain better after Toradol and chest tube removal. Objective: Vital Signs Temp Pulse Resp BP Pulse Ox 37.7 C 115 H 20 143/83 H 93 05/03/17 05:06 05/03/17 05:06 05/03/17 05:06 05/03/17 05:06 05/03/17 05:06 Laboratory Results 05/03/17 04:15 05/02/17 05/03/17 05/04/17 05:59 05:59 05:59 Intake Total 3439.7 1886 Output Total 2275 1139 Balance 1164.7 747 PT 12.8 SEC (12.0-15.0) 04/29/17 09:30 INR 0.97 (0.83-1.16) 04/29/17 09:30 Physical Exam - Physical Exam General Appearance: WD/WN, alert, no apparent distress EENT: No scleral icterus (R), No scleral icterus (L) Neck: normal inspection Respiratory: No respiratory distress Cardiac/Chest: tachycardia (Sinus) Abdomen: non-tender, soft, No distended Skin: normal color, warm/dry Extremities: No pedal edema Neuro/Psych: no motor/sensory deficits, alert, normal mood/affect, oriented x 3 ICD10 Worksheet Patient Problems: Problems Problem Status Onset Acute blood loss anemia Acute CAD in [place] artery Acute S/P CABG x 2 Acute ~05/01/17 Unstable angina Acute
[2017-05-03] MEDS ORDERED: KETOROLAC 30 MG/1 ML SDV IVP ONE (06:15)
[2017-05-03] MEDS ORDERED: fentaNYL 25 MCG PATCH TD SCH (07:30)
[2017-05-03] MEDS ORDERED: PATCH REMOVAL 1 EA PATCH TD ONE (09:47)
[2017-05-03] MEDS: predniSONE 5 MG TAB PO SCH (10:21)
[2017-05-03] MEDS: ROSUVASTATIN CALCIUM 10 MG TAB PO SCH (10:22)
[2017-05-03] MEDS: PANTOPRAZOLE SODIUM 40 MG TAB PO SCH (10:23)
[2017-05-03] MEDS: METOPROLOL TARTRATE 25 MG TAB PO SCH ×2 (10:24→20:52)
[2017-05-03] MEDS: CLOPIDOGREL BISULFATE 75 MG TAB PO SCH (10:27)
[2017-05-03] MEDS: POLYETHYLENE GLYCOL 3350 17 GM PKT PO SCH (10:28)
[2017-05-03] MEDS: SENNOSIDES/DOCUSATE SODIUM TAB PO SCH ×2 (10:29→20:52)
[2017-05-03] MEDS: MAGNESIUM HYDROXIDE 30 ML UDCUP PO PRN (14:39)
--- NOTE | 2017-05-03 16:03 | ASMTCMCOM ---
CM Note CM Note Notes: Patient doing very well/RN. May be able to return home with and go to Cardiac Rehab. Date Signed: 05/03/2017 04:03 PM Electronically Signed By:Lina Reese LCSW
[2017-05-03] MEDS: HYDROmorphONE/DILAUDID 2 MG TAB PO PRN (18:19)
[2017-05-03] MEDS: ONDANSETRON 4 MG/2 ML VIAL IVP PRN ×2 (18:19→23:17)
[2017-05-03] MEDS: ASPIRIN 81 MG CHEWABLE TAB PO SCH (20:52)
[2017-05-04] MEDS: HYDROmorphONE/DILAUDID 2 MG TAB PO PRN (03:13)
[2017-05-04] MEDS: ONDANSETRON 4 MG/2 ML VIAL IVP PRN (03:16)
[2017-05-04 04:47] LABS: HEMATOCRIT 29.6 % (40.0-51.0); HEMOGLOBIN 10.1 g/dL (13.7-17.5); MEAN CELL HEMOGLOBIN 32.2 pg (27.9-34.1); MEAN CELL HEMOGLOBIN CONCENTR. 34.1 g/dL (32.4-36.7); MEAN CELL VOLUME 94.3 fL (81.5-99.8); RED BLOOD CELL COUNT 3.14 10^6/uL (4.40-6.38); RED CELL DISTRIBUTION WIDTH 13.2 % (11.5-15.2)
--- NOTE | 2017-05-04 08:00 | SOAPPROG ---
SOAP Progress Note Assessment/Plan: Assessment: POD#3 Urgent CABG x 2 (SORIA-LAD, SV-D1), open harvest GSV left low leg, prophylactic AtriClip ligation left atrial appendage Sx severe CAD with preserved LV systolic fx - s/p CABG2. Extubated in the OR. No pressor support, jamilah/tachydysrhythmias, backup pacing, or significant volume overload. Chest tubes and wires out. Secondary prevention with ASA, BB as tolerated, and statin when eating well. Adjunctive Plavix x 1 mo for friable vessels. HTN - Home control with ACEI/HCTZ. Postop management with low dose nicardipine. Transition to metoprolol in progress. Postoperative pain and nausea - Expected given hx low pain threshold and profound nausea to narcs. Postop management with multimodal analgesia and anti- emetics. Acute expected blood loss anemia with thrombocytopenia - Stable. No blood products transfused. Platelet rebound evident. VTE prophylaxis w SQ hep. Sjogren syndrome - IV steroids intraop transitioned back to maintenance prednisone dose. Plan: Cont DAPT. Cont metoprolol tartrate 25 mg BID. Start diuresis. Lasix 40mg IV today. Resume SQ heparin. Cont inc activity and pulm toilet. Dispo - Home tomorrow. 05/04/17 07:56 Subjective: Better each day. Awaiting BM and shower. Hopeful for home tomorrow. Objective: Vital Signs Temp Pulse Resp BP Pulse Ox 36.7 C 90 21 H 132/85 H 94 05/04/17 07:51 05/04/17 07:51 05/04/17 07:51 05/04/17 07:51 05/04/17 07:51 Laboratory Results 05/04/17 04:30 05/03/17 05:00 05/03/17 05/04/17 05/05/17 05:59 05:59 05:59 Intake Total 1886 1000 Output Total 1139 900 Balance 747 100 PT 12.8 SEC (12.0-15.0) 04/29/17 09:30 INR 0.97 (0.83-1.16) 04/29/17 09:30 Improved HR control on inc BB. SBP ok. Excellent sats on 2lpm O2. CXR-> min residual left pl eff. Plt count on the rise. Physical Exam - Physical Exam General Appearance: alert, no apparent distress Respiratory: lungs clear Cardiac/Chest: regular rate, rhythm, other (Sternotomy and LLE venotomy CDI) Abdomen: non-tender, soft Skin: warm/dry Extremities: swelling (trace-1+ dependent) ICD10 Worksheet Patient Problems: Problems Problem Status Onset Acute blood loss anemia Acute CAD in [place] artery Acute S/P CABG x 2 Acute ~05/01/17 Unstable angina Acute
[2017-05-04] MEDS ORDERED: FUROSEMIDE 40 MG/4 ML VIAL IVP ONE (09:00)
[2017-05-04] MEDS ORDERED: POTASSIUM CL 20 MEQ TAB PO ONE (09:00)
[2017-05-04] MEDS: predniSONE 5 MG TAB PO SCH (09:17)
[2017-05-04] MEDS: PANTOPRAZOLE SODIUM 40 MG TAB PO SCH (09:17)
[2017-05-04] MEDS: CLOPIDOGREL BISULFATE 75 MG TAB PO SCH (09:17)
[2017-05-04] MEDS: SENNOSIDES/DOCUSATE SODIUM TAB PO SCH (09:18)
[2017-05-04] MEDS: METOPROLOL TARTRATE 25 MG TAB PO SCH ×2 (09:18→21:58)
[2017-05-04] MEDS: CHOLECALCIFEROL VIT D3 2,000 UNITS TAB/CAP PO SCH (09:18)
[2017-05-04] MEDS: FOLIC ACID 1 MG TAB PO SCH (09:18)
[2017-05-04] MEDS: POLYETHYLENE GLYCOL 3350 17 GM PKT PO SCH (09:19)
[2017-05-04] MEDS: MAGNESIUM HYDROXIDE 30 ML UDCUP PO PRN (11:00)
[2017-05-04] MEDS: HEPARIN 5,000 UNIT/0.5 ML SYR SC SCH ×2 (14:19→22:03)
--- NOTE | 2017-05-04 15:29 | ASMTCMCOM ---
CM Note CM Note Notes: 05/04/2017 Case Management Note Reviewed chart, spoke w/RN. PT is recommending Cardiac outpatient rehab. No other case management d/c needs identified d/t pt age and activity levels prior to admission. Pt is . Case Management d/c poc: home with family support when medically stable with follow up as directed. Case Management available if needs change. Date Signed: 05/04/2017 03:28 PM Electronically Signed By:Yaneth Patel RN
[2017-05-04] MEDS: traMADol 50 MG TAB PO PRN ×2 (15:59→22:01)
[2017-05-04] MEDS ORDERED: ZOLPIDEM TARTRATE 5 MG TAB PO PRN (21:00)
[2017-05-04] MEDS ORDERED: SENNOSIDES/DOCUSATE SODIUM TAB PO PRN (21:00)
[2017-05-04] MEDS: ASPIRIN 81 MG CHEWABLE TAB PO SCH (22:02)
[2017-05-05] MEDS: traMADol 50 MG TAB PO PRN ×4 (03:16→20:05)
[2017-05-05 04:00] LABS: POTASSIUM 4.1 mEq/L (3.5-5.2)
[2017-05-05] MEDS: HEPARIN 5,000 UNIT/0.5 ML SYR SC SCH ×3 (06:02→20:06)
--- NOTE | 2017-05-05 07:28 | SOAPPROG ---
SOAP Progress Note Assessment/Plan: Assessment: POD#4 Urgent CABG x 2 (SORIA-LAD, SV-D1), open harvest GSV left low leg, prophylactic AtriClip ligation left atrial appendage Sx severe CAD with preserved LV systolic fx - s/p CABG2. Extubated in the OR. No pressor support, jamilah/tachydysrhythmias, backup pacing, or significant volume overload. Chest tubes and wires out. Secondary prevention with ASA, BB, and statin. Adjunctive Plavix x 1 mo for friable vessels. HTN - Home control with ACEI/HCTZ. Postop management with low dose nicardipine, transitioning to metoprolol and lasix. Postoperative pain and nausea - Expected given hx low pain threshold and profound nausea to narcs. Postop management with multimodal analgesia and anti- emetics. Acute expected blood loss anemia with thrombocytopenia - Stable. No blood products transfused. Platelet rebound evident. VTE prophylaxis w SQ hep. Sjogren syndrome - IV steroids intraop transitioned back to maintenance prednisone dose. Plan: Cont DAPT. Cont metoprolol tartrate 25 mg BID. Cont lasix x 1 more day. Relistor 12 mg SC x 1. Dispo - Home this afternoon if normalized bowel fx. 05/05/17 07:27 Subjective: Doing ok except for constipation. Multiple laxatives yest with no good effect ( single small stool). Cont to pass gas. Cont to actively walk. Objective: Vital Signs Temp Pulse Resp BP Pulse Ox 36.7 C 98 18 128/81 H 92 05/05/17 04:39 05/05/17 04:39 05/05/17 04:39 05/05/17 04:39 05/05/17 04:39 Laboratory Results 05/04/17 04:30 05/05/17 03:25 05/04/17 05/05/17 05/06/17 05:59 05:59 05:59 Intake Total 1000 1750 Output Total 900 1000 Balance 100 750 PT 12.8 SEC (12.0-15.0) 04/29/17 09:30 INR 0.97 (0.83-1.16) 04/29/17 09:30 Cardioresp status stable. Borderline suppl O2 req. Adequate fluid balance, dropping 1 kg daily. Physical Exam - Physical Exam General Appearance: alert, no apparent distress Respiratory: lungs clear Cardiac/Chest: regular rate, rhythm, other (Sternum grossly stable. Sternotomy, CT sites and LLE venotomy CDI.) Abdomen: normal bowel sounds, non-tender, soft Skin: warm/dry Extremities: other (no visible edema) ICD10 Worksheet Patient Problems: Problems Problem Status Onset Acute blood loss anemia Acute CAD in [place] artery Acute S/P CABG x 2 Acute ~05/01/17 Unstable angina Acute
[2017-05-05] MEDS: POLYETHYLENE GLYCOL 3350 17 GM PKT PO SCH (08:59)
[2017-05-05] MEDS: POTASSIUM CL 10 MEQ TAB PO SCH (09:12)
[2017-05-05] MEDS: FUROSEMIDE 20 MG TAB PO SCH (09:12)
[2017-05-05] MEDS: predniSONE 5 MG TAB PO SCH (09:12)
[2017-05-05] MEDS: CHOLECALCIFEROL VIT D3 2,000 UNITS TAB/CAP PO SCH (09:13)
[2017-05-05] MEDS: CLOPIDOGREL BISULFATE 75 MG TAB PO SCH (09:13)
[2017-05-05] MEDS: PANTOPRAZOLE SODIUM 40 MG TAB PO SCH (09:13)
[2017-05-05] MEDS: FOLIC ACID 1 MG TAB PO SCH (09:13)
[2017-05-05] MEDS: METOPROLOL TARTRATE 25 MG TAB PO SCH ×2 (09:13→20:04)
[2017-05-05] MEDS: METHYLNALTREXONE BROMIDE 12 MG/0.6 ML INJ SC ONE ×2 (09:16→09:45)
[2017-05-05] MEDS ORDERED: MAGNESIUM CITRATE 300 ML BOTTLE PO PRN (12:00)
[2017-05-05] MEDS: ASPIRIN 81 MG CHEWABLE TAB PO SCH (20:04)
[2017-05-06] MEDS: traMADol 50 MG TAB PO PRN ×2 (00:50→10:29)
[2017-05-06] MEDS: HEPARIN 5,000 UNIT/0.5 ML SYR SC SCH (06:23)
--- NOTE | 2017-05-06 06:46 | SOAPPROG ---
SOAP Progress Note Assessment/Plan: POD#5 Urgent CABG x 2 (SORIA-LAD, SV-D1), open harvest GSV left low leg, prophylactic AtriClip ligation left atrial appendage Sx severe CAD with preserved LV systolic fx - s/p CABG2. Extubated in the OR. No pressor support, jamilah/tachydysrhythmias, backup pacing, or significant volume overload. Secondary prevention with ASA, BB as tolerated, and statin when eating well. Adjunctive Plavix x 1 mo for friable vessels. All tubes and wires out. HTN - Home control with ACEI/HCTZ. Well managed with beta-karan. Postoperative pain and nausea - Resolved Acute expected blood loss anemia with thrombocytopenia - Stable. No blood products transfused. Sjogren syndrome - On home steroids. Subjective: Finally a BM. Pain well-controlled. Ready to go home. Objective: Vital Signs Temp Pulse Resp BP Pulse Ox 36.6 C 89 18 122/81 H 92 05/06/17 04:00 05/06/17 04:00 05/06/17 04:00 05/06/17 04:00 05/06/17 04:00 Laboratory Results 05/04/17 04:30 05/05/17 03:25 05/05/17 05/06/17 05/07/17 05:59 05:59 05:59 Intake Total 1750 1200 Output Total 1000 400 Balance 750 800 PT 12.8 SEC (12.0-15.0) 04/29/17 09:30 INR 0.97 (0.83-1.16) 04/29/17 09:30 Physical Exam - Physical Exam General Appearance: WD/WN, alert, no apparent distress EENT: No scleral icterus (R), No scleral icterus (L) Neck: normal inspection Respiratory: No respiratory distress Cardiac/Chest: regular rate, rhythm Abdomen: non-tender, soft, No distended Skin: normal color, warm/dry Extremities: No pedal edema Neuro/Psych: no motor/sensory deficits, alert, normal mood/affect, oriented x 3 ICD10 Worksheet Patient Problems: Problems Problem Status Onset Acute blood loss anemia Acute CAD in [place] artery Acute S/P CABG x 2 Acute ~05/01/17 Unstable angina Acute
[2017-05-06 07:35] VITALS: BP 119/73; PULSE 98; RESP 17; TEMP 98.3; O2SAT 93
--- NOTE | 2017-05-06 07:53 | PDHOMEO2F ---
Home Oxygen Face to Face Home Orders: I certify that a physician or a nurse practitioner or physician's orthopedic assistant has had a [id number] encounter with this patient on the date of this order due to the diagnosis listed, which relates to the primary reason the patient requires home oxygen. Alternative treatments have been tried, or considered, and deemed ineffective. It is anticipated that supplemental oxygen will result in improvement with treatment. Home oxygen qualifying diagnosis: s/p CABG, hypoxemia, atelectasis, SOB SpO2 on room air (%): 82 Frequency of home oxygen needed: continuous Home oxygen liters per minute: 1 Home oxygen delivery device: nasal cannula Concentrator: Yes E-tanks for mobility and back up: Yes If ordering portable O2, is the patient mobile in the home?: Yes I certify that, based on these findings, the home oxygen is medically necessary for this patient for the following length of time. Length of time home oxygen needed: 1 month
[2017-05-06] MEDS: CLOPIDOGREL BISULFATE 75 MG TAB PO SCH (08:02)
[2017-05-06] MEDS: POTASSIUM CL 10 MEQ TAB PO SCH (08:02)
[2017-05-06] MEDS: FOLIC ACID 1 MG TAB PO SCH (08:02)
[2017-05-06] MEDS: FUROSEMIDE 20 MG TAB PO SCH (08:02)
[2017-05-06] MEDS: ROSUVASTATIN CALCIUM 10 MG TAB PO SCH (08:03)
[2017-05-06] MEDS: CHOLECALCIFEROL VIT D3 2,000 UNITS TAB/CAP PO SCH (08:04)
[2017-05-06] MEDS: predniSONE 5 MG TAB PO SCH (08:04)
[2017-05-06] MEDS: METOPROLOL TARTRATE 25 MG TAB PO SCH (08:05)
[2017-05-06] MEDS: POLYETHYLENE GLYCOL 3350 17 GM PKT PO SCH (08:06)
--- NOTE | 2017-05-06 09:59 | PDDCSUM ---
Discharge Summary Discharge Summary: ADMISSION DATE: 04/29/17 DISCHARGE DATE: 05/06/17 ADMISSION DX: 1. Unstable angina with severe two-vessel coronary atherosclerotic disease 2. Hypertension DISCHARGE DX: 1. Unstable angina with severe two-vessel coronary atherosclerotic disease 2. Hypertension 3. Acute blood loss anemia 4. Postoperative nausea PROCEDURES 05/01/17, Emile Rachel: 1. CABGx2 (SORIA-LAD, SVG-diag), AtriClip PHANI, open SVG harvest LLE [facility]OS[facility]ITAL COURSE BY PROBLEM LIST 1. Unstable angina with severe two-vessel coronary atherosclerotic disease - stable s/p CABGx2. Secondary prevention with Plavix for 30 days, aspirin, beta- karan, and statin. 2. Hypertension - ACEi discontinued and beta-karan started with adequate control. 3. Acute blood loss anemia - stable without the need for blood product transfusions. 4. Postoperative nausea - controlled with limiting opioids and Zofran. CONDITION Good DISPOSITION Home, self-care ACTIVITY Pt was instructed on sternal precautions, activity limitations, and which problems to call [facility] with. Please see Discharge Plan in chart for specifics. D/C MEDICATIONS Continue: 1. Aspirin [Aspirin 81mg (*)] 81 mg PO HS 2. Cholecalciferol Vit D3 [Vitamin D3 2000 units tab (OTC)] 2,000 units PO DAILY 3. Folic Acid [Folic Acid 1 MG (*)] 1 mg PO DAILY 4. Herbals/Supplements -Info Only 1 ea PO DAILY 5. Methotrexate Sodium [Rheumatrex] 10 mg PO TH 6. Rosuvastatin Calcium [Crestor 5mg] 2.5 mg PO Q2D 7. predniSONE 2.5 mg PO DAILY New: 1. Acetaminophen [Tylenol 325mg (*)] 325 - 650 mg PO Q4HRS PRN 2. Clopidogrel Bisulfate [Plavix (*)] 75 mg PO DAILY #30 3. Metoprolol Tartrate [Lopressor 25 mg (*)] 25 mg PO BID 4. Ondansetron HCl [Zofran] 4 mg PO Q6 PRN 5. traMADol [Ultram 50 mg (*)] 50 - 100 mg PO Q4HRS PRN Discontinue: 1. Lisinopril/HCTZ PENDING STUDIES/LABS 1. CXR prior to surgical follow-up F/U APPOINTMENTS 1. Emile Rachel - 05/18/17, 9:30 AM
[2017-05-06] MEDS: ONDANSETRON 4 MG/2 ML VIAL IVP PRN (10:29)
--- NOTE | 2017-05-06 14:40 | ASDISCHSUM ---
Discharge Information Plan Status:Home with No Needs Medically Cleared to Leave:05/06/2017 Discharge Date:05/06/2017 12:28 PM CM D/C Disposition: ADT D/C Disposition:Home, Routine, Self-Care Projected Discharge Date:05/06/2017 12:00 AM Transportation at D/C: Discharge Delay Reason: Follow-Up Date:05/06/2017 12:00 AM Discharge Slot: Final Diagnosis: Placement Information Patient Contact Information Contact Name:LEYLA Relationship: Address:[address] Work Phone: City:[place] Alternate Phone: [facility]/Zip Code:[place] [address] Email: Financial Information Financial Class:HMO and PPO Plans Primary Plan Desc:[employer] [facility] Primary Plan Number:[id number] Secondary Plan Desc: Secondary Plan Number: Assessment Information [facility] Initial CM Assessment Living Arrangements What is your living Answers: With Spouse arrangement? Who do you live with? Type Of Residence What kind of residence do Answers: House you live in? Discharge Plan Comments Coordination Status Comments Notes: Chart reviewed, pt is a 61 y/o man admitted for post cath and pre open heart. Pt is scheduled to have surgical intervention tomorrow. Needs are TBD at this time. No therapies ordered at this time. However, anticipates that pt will d/c independent when medically stable w/ supportive . CM available for changes. Date Signed: 04/30/2017 03:47 PM Electronically Signed By:DANILO Jaimes [facility] CM Progress Note CM Note CM Note Notes: Patient doing very well/RN. May be able to return home with and go to Cardiac Rehab. Date Signed: 05/03/2017 04:03 PM Electronically Signed By:Lina Reese LCSW [facility] CM Progress Note CM Note CM Note Notes: 05/04/2017 Case Management Note Reviewed chart, spoke w/RN. PT is recommending Cardiac outpatient rehab. No other case management d/c needs identified d/t pt age and activity levels prior to admission. Pt is . Case Management d/c poc: home with family support when medically stable with follow up as directed. Case Management available if needs change. Date Signed: 05/04/2017 03:28 PM Electronically Signed By:Yaneth Patel RN Intervention Information
== END 2017-05-06 12:28 | disposition home or self-care (01) | DRG 234 ==
LOC: FCATH 09:04 → F2W 16:52 → F2N 05-01 09:00 → F2W 05-03 13:19
PROVIDERS: ADMIT Internal Medicine Cardiovascular Disease; ATTEND Internal Medicine Cardiovascular Disease
PROC: 4A023N7 Measurement of Cardiac Sampling and Pressure, Left Heart, Percutaneous Approach (ICD-10-PCS; 2017-04-29)
PROC: 5A1221Z Performance of Cardiac Output, Continuous (ICD-10-PCS; principal; 2017-05-01 08:00)
PROC: 06BQ0ZZ Excision of Left Saphenous Vein, Open Approach (ICD-10-PCS; principal; 2017-05-01 08:00)
PROC: 02100Z9 Bypass Coronary Artery, One Artery from Left Internal Mammary, Open Approach (ICD-10-PCS; principal; 2017-05-01 08:00)
PROC: 02L70CK Occlusion of Left Atrial Appendage with Extraluminal Device, Open Approach (ICD-10-PCS; principal; 2017-05-01 08:00)
PROC: 021009W Bypass Coronary Artery, One Artery from Aorta with Autologous Venous Tissue, Open Approach (ICD-10-PCS; principal; 2017-05-01 08:00)
DX: I25.110 Atherosclerotic heart disease of native coronary artery with unstable angina pectoris (principal); D62 Acute posthemorrhagic anemia; Q87.1 Congenital malformation syndromes predominantly associated with short stature; I10 Essential (primary) hypertension; E78.00 Pure hypercholesterolemia, unspecified; G47.33 Obstructive sleep apnea (adult) (pediatric)
CPT/HCPCS: 82947-QW; 97116-GP; 97161-GP; 97166-GO; 97535-GO; C1753; C1769; C1887; J0153; J0282; J0690; J1100; J1170; J1265; J1644; J1815; J1885; J1940; J2001; J2212; J2250; J2260; J2370; J2405; J2440; J2550; J2704; J2720; J2765; J2930; J3010; J7060; P9041; Q9967

== ENCOUNTER → 2017-05-17 | Outpatient (CLI) | payer BC | LOC: FIMAGING 11:33 | PROVIDERS: ATTEND Thoracic Surgery (Cardiothoracic Vascular Surgery) | DX: J90 Pleural effusion, not elsewhere classified (principal); Z95.1 Presence of aortocoronary bypass graft ==

== ENCOUNTER → 2017-05-28 | Outpatient (CLI) | payer BC | LOC: FIMAGING 11:23 → EDSTATUS 11:24 | PROVIDERS: ATTEND Thoracic Surgery (Cardiothoracic Vascular Surgery) | DX: J90 Pleural effusion, not elsewhere classified (principal); Z95.1 Presence of aortocoronary bypass graft ==

== ENCOUNTER 2017-06-10 08:56 | Emergency (ER) | payer BC ==
[2017-06-10] MEDS ORDERED: fentaNYL 100 MCG/2 ML INJ IVP ONE (09:06)
[2017-06-10] MEDS ORDERED: NS 1,000 ML IV ONE (09:15)
[2017-06-10] MEDS: ONDANSETRON 4 MG/2 ML VIAL IVP ONE (09:19)
[2017-06-10 09:24] LABS: % IMMATURE GRANULYOCYTES 0.8 % (0.0-1.1); ABSOLUTE IMMATURE GRANULOCYTES 0.03 10^3/uL (0.00-0.10); ADD DIFF? NO; ADD MORPH? NO; ADD SCAN? NO; ATYPICAL LYMPHOCYTE FLAG 30 (0-99); FRAGMENT RBC FLAG 0 (0-99); HEMATOCRIT 40.1 % (40.0-51.0); HEMOGLOBIN 13.9 g/dL (13.7-17.5); LEFT SHIFT FLG 0 (0-99); LIPEMIA HEMOLYSIS FLAG 90 (0-99); MEAN CELL HEMOGLOBIN 31.8 pg (27.9-34.1); MEAN CELL HEMOGLOBIN CONCENTR. 34.7 g/dL (32.4-36.7); MEAN CELL VOLUME 91.8 fL (81.5-99.8); PLATELET CLUMPS FLAG 0 (0-99); PLATELET COUNT 159 10^3/uL (150-400); RED BLOOD CELL COUNT 4.37 10^6/uL (4.40-6.38); RED CELL DISTRIBUTION WIDTH 14.7 % (11.5-15.2)
--- NOTE | 2017-06-10 09:30 | EDPHY ---
General Narrative: CHIEF COMPLAINT: Abdominal flank pain HISTORY OF PRESENT ILLNESS: Patient complains of sudden onset of right-sided abdominal flank pain. This started abruptly this morning. It is severe, 10/10 pain. Causing him to feel nauseated but not vomiting. He shaking from the pain. No shortness of breath. No urinary complaints. No diarrhea constipation. No trauma or injury. No history of kidney stones. No history of diverticulitis. No history of colitis. Does have a significant history of coronary artery disease, CABG performed 6 weeks ago. No complaints pertaining to this at this time. No other associated complaints or modifying factors. REVIEW OF SYSTEMS: Ten systems reviewed and are negative unless otherwise noted in the HPI PCP: Dr. Kiley Merchant ([place]) SPECIALISTS: Dr. Peng and Dr. Rachel PAST MEDICAL HISTORY: Hypertension, coronary artery disease, Sjogren syndrome PAST SURGICAL HISTORY: CABG 6 weeks ago Appendectomy remotely SOCIAL HISTORY: Nonsmoker. Occasional alcohol. No drug use. 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 No wheezing, rhonchi or crackles Cardiovascular: Regular rate and rhythm murmur. Gastrointestinal: Abdomen is soft and nondistended. Bowel sounds are symmetric in all 4 quadrants. There is tenderness on the right side both quadrants. There is right CVA tenderness. No guarding. No tympany. No rigidity. No distention. Neurological: A&O, nonfocal, strength is symmetric Skin: Warm and dry, no rash Extremities: Nontender, no pedal edema Psychiatric: Mood and affect normal DIFFERENTIAL DIAGNOSES: Including but not limited to diverticulitis, colitis, cholecystitis, cholangitis , renal colic, cholelithiasis, pancreatitis MDM: 9:15 a.m. Right-sided abdominal flank pain. He is in obvious discomfort but in no acute distress. Vital signs are stable. He does not meet SIRS criteria. Pain medication being administered during my examination. Laboratory studies pending. Plan for CT scan of the abdomen pelvis. He is in no acute distress despite his pain. 9:29 a.m. Patient re-evaluated. He is feeling significantly better after the 1st dose of IV fentanyl. He is no longer perseverating. Abdominal examination is easier, and now the right-sided pain is primarily right upper quadrant. Monitor and continue treating his pain all laboratory studies are running. 10:10 a.m. Attempted to re-evaluated the patient. He standing at bedside providing a urine sample. I will re-evaluate after this 10:20 a.m. Patient re-evaluated. He remained stable in no acute distress. CBC and chemistries are completely unremarkable. I suspect this is likely a renal colic situation. Urinalysis is pending. Plan for CT scan of the abdomen pelvis after the urinalysis result. 10:43 a.m. Urinalysis shows blood microscopically. This suggest stone etiology. I have ordered a CT scan of the abdomen pelvis without contrast 11:30 a.m. Case discussed with radiologist Dr. Varela. CT scan findings discussed. There is a right ureteral stone, 5 x 3 mm. Moderate hydronephrosis. Trace left pleural effusion. This is consistent with his recent median sternotomy. 11:50 a.m. I have re-evaluated the patient. We discussed the patient's laboratory studies and CT scan findings. Continues to improve in his symptoms. I offered admission to the hospital for pain control the patient would like to go home. I do feel this is reasonable for him at this time. He will be discharged home with tramadol as this works best for him, Zofran, 1 dose of Flomax. He is to contact his primary care physician and urologist tomorrow for definitive care. ED precautions discussed including fever, worsening pain, nausea, vomiting, difficulty urinating. He is comfortable with this plan. I have answered all of his questions. He and his spouse are comfortable going home at this time. He is discharged in stable condition. - Diagnostics Imaging Results: Imaging Impressions Abdomen/Pelvis CT 06/10/17 10:42 Impression: 1. 5-mm calculus proximal right ureter, resulting in moderate hydronephrosis. 2. No additional calculi. 3. Trace left effusion and left basilar atelectasis. 4. Two-vessel calcified coronary plaque. Attention: This CT examination is specifically designed to evaluate patients who are clinically suspected of having acute obstructive uropathy. This examination does not use radiographic contrast, and as such, provides only a limited evaluation of the abdomen, pelvis and retroperitoneum. If there is further clinical suspicion for pathological conditions other than obstructive uropathy, a complete CT evaluation of the abdomen and pelvis utilizing intravenous, oral, and rectal contrast should be considered. Findings discussed with Emergency Department physician assistant community manager, Tk Chavez PA-C on June 10, 2017 at 1139 hours. - History Smoking Status: Former smoker - Objective Vital Signs: Initial Vital Signs Temperature (C) 98.6 F 06/10/17 08:58 Heart Rate 74 06/10/17 08:58 Respiratory Rate 20 06/10/17 08:58 Blood Pressure 155/85 H 06/10/17 08:58 O2 Sat (%) 98 06/10/17 08:58 O2 Delivery Mode Room Air Allergies/Adverse Reactions: No Allergies [NKDA] Allergy (Verified 06/10/17 09:26) Home Medications: Medication Instructions Recorded Aspirin [Aspirin 81mg (*)] 81 mg PO HS 04/29/17 Cholecalciferol Vit D3 [Vitamin D3 2,000 units PO DAILY 04/29/17 2000 units tab (OTC)] Folic Acid [Folic Acid 1 MG (*)] 1 mg PO DAILY 04/29/17 Herbals/Supplements -Info Only 1 ea PO DAILY 04/29/17 Methotrexate Sodium [Rheumatrex] 10 mg PO TH 04/29/17 Rosuvastatin Calcium [Crestor 5mg] 2.5 mg PO Q2D 04/29/17 predniSONE 2.5 mg PO DAILY 04/29/17 Acetaminophen [Tylenol 325mg (*)] 325 - 650 mg PO Q4HRS PRN tab 05/06/17 Clopidogrel Bisulfate [Plavix (*)] 75 mg PO DAILY #30 tab 05/06/17 Metoprolol Tartrate [Lopressor 25 25 mg PO BID #60 tab 05/06/17 mg (*)] Ondansetron HCl [Zofran] 4 mg PO Q6 PRN #30 tablet 05/06/17 traMADol [Ultram 50 mg (*)] 50 - 100 mg PO Q4HRS PRN #40 tab 05/06/17 Ondansetron Odt [Zofran Odt 4 mg 4 mg PO Q6 PRN #12 tab 06/10/17 (*)] Tamsulosin HCl [Flomax 0.4 MG (*)] 0.4 mg PO DAILY #1 cap 06/10/17 traMADol [Ultram 50 mg (*)] 50 mg PO Q4 PRN #17 tab 06/10/17 Laboratory Results: Laboratory Results 06/10/17 09:10 06/10/17 09:10 06/10/17 06/10/17 06/10/17 10:00 09:10 09:10 WBC RBC Hgb POC Hgb Hct POC Hct MCV MCH MCHC RDW Plt Count MPV Neut % (Auto) Lymph % (Auto) [place] % (Auto) Eos % (Auto) Baso % (Auto) Nucleat RBC Rel Count Absolute Neuts (auto) Absolute Lymphs (auto) Absolute Monos (auto) Absolute Eos (auto) Absolute Basos (auto) Absolute Nucleated RBC Immature Gran % Immature Gran # PT 13.0 SEC SEC (12.0-15.0) INR 0.99 (0.83-1.16) APTT 29.4 SEC SEC (23.0-38.0) POC Sodium Sodium 145 mEq/L H mEq/L (134-144) POC Potassium Potassium 4.0 mEq/L mEq/L (3.5-5.2) POC Chloride Chloride 104 mEq/L mEq/L (97-110) Carbon Dioxide 27 mEq/l mEq/l (22-31) Anion Gap 14 mEq/L mEq/L (8-16) POC BUN BUN 22 mg/dL mg/dL (7-23) Creatinine 0.9 mg/dL mg/dL (0.7-1.3) POC Creatinine Estimated GFR > 60 Glucose 88 mg/dL mg/dL (70-100) POC Glucose Calcium 10.0 mg/dL mg/dL (8.5-10.4) Total Bilirubin 0.9 mg/dL mg/dL (0.1-1.4) Conjugated Bilirubin 0.2 mg/dL mg/dL (0.0-0.5) Unconjugated Bilirubin 0.7 mg/dL mg/dL (0.0-1.1) AST 29 IU/L IU/L (17-59) ALT 48 IU/L IU/L (21-72) Alkaline Phosphatase 84 IU/L IU/L (38-126) Total Protein 7.3 g/dL g/dL (6.3-8.2) Albumin 4.3 g/dL g/dL (3.5-5.0) Lipase 265 IU/L IU/L (23-300) Urine Color YELLOW Urine Appearance CLEAR Urine pH 6.0 (5.0-7.5) Ur Specific [place] 1.014 (1.002-1.030) Urine Protein NEGATIVE (NEGATIVE) Urine Ketones NEGATIVE (NEGATIVE) Urine Blood 3+ H (NEGATIVE) Urine Nitrate NEGATIVE (NEGATIVE) Urine Bilirubin NEGATIVE (NEGATIVE) Urine Urobilinogen NEGATIVE EU EU (0.2-1.0) Ur Leukocyte Esterase NEGATIVE (NEGATIVE) Urine RBC 50-182 /hpf H /hpf (0-3) Urine WBC 1-3 /hpf /hpf (0-3) Ur Epithelial Cells TRACE /lpf /lpf (NONE-1+) Urine Mucus 1+ /lpf /lpf (NONE-1+) Urine Glucose NEGATIVE (NEGATIVE) 06/10/17 06/10/17 09:10 09:08 WBC 3.92 10^3/uL 10^3/uL (3.80-9.50) RBC 4.37 10^6/uL L 10^6/uL (4.40-6.38) Hgb 13.9 g/dL g/dL (13.7-17.5) POC Hgb 14.3 gm/dL gm/dL (13.7-17.5) Hct 40.1 % % (40.0-51.0) POC Hct 42 % % (40-51) MCV 91.8 fL fL (81.5-99.8) MCH 31.8 pg pg (27.9-34.1) MCHC 34.7 g/dL g/dL (32.4-36.7) RDW 14.7 % % (11.5-15.2) Plt Count 159 10^3/uL 10^3/uL (150-400) MPV 10.0 fL fL (8.7-11.7) Neut % (Auto) 63.8 % % (39.3-74.2) Lymph % (Auto) 22.4 % % (15.0-45.0) [place] % (Auto) 8.9 % % (4.5-13.0) Eos % (Auto) 3.6 % % (0.6-7.6) Baso % (Auto) 0.5 % % (0.3-1.7) Nucleat RBC Rel Count 0.0 % % (0.0-0.2) Absolute Neuts (auto) 2.50 10^3/uL 10^3/uL (1.70-6.50) Absolute Lymphs (auto) 0.88 10^3/uL L 10^3/uL (1.00-3.00) Absolute Monos (auto) 0.35 10^3/uL 10^3/uL (0.30-0.80) Absolute Eos (auto) 0.14 10^3/uL 10^3/uL (0.03-0.40) Absolute Basos (auto) 0.02 10^3/uL 10^3/uL (0.02-0.10) Absolute Nucleated RBC 0.00 10^3/uL 10^3/uL (0-0.01) Immature Gran % 0.8 % % (0.0-1.1) Immature Gran # 0.03 10^3/uL 10^3/uL (0.00-0.10) PT INR APTT POC Sodium 143 mEq/L mEq/L (134-144) Sodium POC Potassium 3.7 mEq/L mEq/L (3.3-5.0) Potassium POC Chloride 105 mEq/L mEq/L (97-110) Chloride Carbon Dioxide Anion Gap POC BUN 21 mg/dL mg/dL (7-23) BUN Creatinine POC Creatinine 0.9 mg/dL mg/dL (0.7-1.3) Estimated GFR Glucose POC Glucose 90 mg/dL mg/dL (70-100) Calcium Total Bilirubin Conjugated Bilirubin Unconjugated Bilirubin AST ALT Alkaline Phosphatase Total Protein Albumin Lipase Urine Color Urine Appearance Urine pH Ur Specific [place] Urine Protein Urine Ketones Urine Blood Urine Nitrate Urine Bilirubin Urine Urobilinogen Ur Leukocyte Esterase Urine RBC Urine WBC Ur Epithelial Cells Urine Mucus Urine Glucose Medications Given: Discontinued Medications Fentanyl (Sublimaze) 75 mcg IVP EDNOW ONE Stop: 06/10/17 09:07 Last Admin: 06/10/17 09:21 Dose: 75 mcg Sodium Chloride (Ns) 1,000 mls @ 0 mls/hr IV EDNOW ONE; Wide Open PRN Reason: Protocol Stop: 06/10/17 09:16 Last Admin: 06/10/17 09:22 Dose: 1,000 mls Ketorolac Tromethamine (Toradol) 15 mg IVP EDNOW ONE Stop: 06/10/17 10:43 Last Admin: 06/10/17 11:19 Dose: 30 mg Ondansetron HCl (Zofran) 4 mg IVP EDNOW ONE Stop: 06/10/17 09:08 Last Admin: 06/10/17 09:19 Dose: 4 mg Point of Care Test Results: 06/10/17 09:08 POC Sodium 143 POC Potassium 3.7 POC Chloride 105 POC BUN 21 POC Creatinine 0.9 POC Glucose 90 Departure - Departure Disposition: Home, Routine, Self-Care Clinical Impression: Renal colic on right side, Ureteral stone with hydronephrosis Condition: Good Instructions: Renal Colic (ED), Hydronephrosis (ED), Ureteral Stones (ED) Additional Instructions: 1. Increase fluid intake today. 2. Contact primary care physician for follow-up tomorrow or Wednesday 3. Follow up with Urology, information provided 4. ED precautions as discussed Referrals: TRAN MERCHANT [Other] - As per Instructions Anh Santiago MD [Medical Doctor] - As per Instructions Prescriptions: Ondansetron Odt [Zofran Odt 4 mg (*)] 4 mg PO Q6 PRN #12 tab PRN Reason: Nausea/Vomiting, Use 1st Tamsulosin HCl [Flomax 0.4 MG (*)] 0.4 mg PO DAILY #1 cap traMADol [Ultram 50 mg (*)] 50 mg PO Q4 PRN #17 tab PRN Reason: Pain, Mild
[2017-06-10 09:36] LABS: APTT 29.4 SEC (23.0-38.0); INR 0.99 (0.83-1.16)
[2017-06-10 10:16] LABS: ALANINE AMINOTRANSFERASE 48 IU/L (21-72); ALBUMIN 4.3 g/dL (3.5-5.0); ALKALINE PHOSPHATASE 84 IU/L (38-126); ANION GAP 14 mEq/L (8-16); ASPARTATE AMINOTRANSFERASE 29 IU/L (17-59); BILIRUBIN,TOTAL 0.9 mg/dL (0.1-1.4); BILIRUBIN-CONJUGATED 0.2 mg/dL (0.0-0.5); BILIRUBIN-UNCONJUGATED 0.7 mg/dL (0.0-1.1); CARBON DIOXIDE 27 mEq/l (22-31); CHLORIDE 104 mEq/L (97-110); CREATININE 0.9 mg/dL (0.7-1.3); GLOMERULAR FILTRATION RATE > 60; GLUCOSE 88 mg/dL (70-100); SODIUM 145 mEq/L (134-144); TOTAL PROTEIN 7.3 g/dL (6.3-8.2)
[2017-06-10 10:19] LABS: COLOR YELLOW; LEUKOCYTE ESTERASE,URINE NEGATIVE (NEGATIVE); NITRITE,URINE NEGATIVE (NEGATIVE)
[2017-06-10 10:20] LABS: MUCUS 1+ /lpf (NONE-1+); RBC,URINE 50-182 /hpf (0-3)
[2017-06-10] MEDS ORDERED: KETOROLAC 30 MG/1 ML SDV IVP ONE (10:42)
[2017-06-10 12:02] VITALS: BP 122/78; PULSE 70; RESP 17; TEMP 98.4; O2SAT 96
== END 2017-06-10 12:13 | disposition home or self-care (01) ==
DX: N13.2 Hydronephrosis with renal and ureteral calculous obstruction (principal); I25.810 Atherosclerosis of coronary artery bypass graft(s) without angina pectoris; E86.9 Volume depletion, unspecified; Z79.82 Long term (current) use of aspirin; Z87.891 Personal history of nicotine dependence; Z90.49 Acquired absence of other specified parts of digestive tract
CPT/HCPCS: 82947-QW; 96374; J1885; J2405; J3010